=== PATIENT | male | born 1975 | race Caucasian/White ===

== ENCOUNTER 2017-07-26 10:35 | Outpatient (CLI) | payer BC ==
--- NOTE | 2017-07-26 12:25 | CT ---
CT LUMBAR SPINE WITHOUT CONTRAST: Date: 07/26/17 Multiple axial tomograms obtained through lumbar spine with multiplanar reconstruction. INDICATION: Low back pain. FINDINGS: There are superior end plate deformities consistent with Schmorl's nodes involving the L2, L3, and L4 vertebra. Vertebral bodies otherwise maintain normal height and alignment. There is mild loss of di sc space at L1-2, L2-3, and L3-4. No evidence of spondylolisthesis or spondylolysis. At L1-2, there is no significant disc bulge or protrusion. There is mild facet hypertrophy resulting in mild central canal stenosis. At L2-3, there is a mild diffuse disc bulge with associated facet and ligamentous hypertrophy resulti ng in mild to moderate central canal stenosis. At L3-4, broad based disc bulge is seen with facet and ligamentous hypertrophy resulting in moderate to severe central canal stenosis. At L4-5, diffuse disc bulge with prominence facet and ligamentous hypertrophy resulting in severe breanna tral canal stenosis. At L5-S1, there is a disc bulge and possible focal disc protrusion paracentrally to the left which im pinges on the thecal sac and may contact the traversing S1 nerve roots. Congenitally small thecal sac is present, which results in only mild central canal stenosis. There is an osteophyte complex projecting to the left at this level which does encroach into the fora yesica and this does appear to contact the exiting L5 nerve root on the left. IMPRESSION: Disc bulge and posterior hypertrophic changes result in central canal stenosis at multiple levels as described above. An osteophyte projecting into the foramen on the left at L5-S1 is seen as described above. POS: [facility]
== END 2017-07-26 10:36 | disposition home or self-care (01) ==
LOC: TBSIIMAG 10:35
PROVIDERS: ATTEND Neurological Surgery
DX: M54.5 Low back pain (principal); M51.86 Other intervertebral disc disorders, lumbar region; M48.061 Spinal stenosis, lumbar region without neurogenic claudication; M25.78 Osteophyte, vertebrae
CPT/HCPCS: 72131